=== PATIENT | female | born 1985 | race Caucasian/White ===

== ENCOUNTER → 2016-04-10 | Outpatient (CLI) | payer OTHER ==
[~2016-04-10] VITALS: Ht 170.2 cm; Wt 87.1 kg
[~2016-04-10] MED LIST: AMPICILLIN TRI500 MG PO; METHADONE H5 MG/5 ML PO; MOTRIN800 MG PO; PRENATAL TABLE1 EAC3 PO; VALTREX50 MG/ML PO
== END | disposition home or self-care (01) ==
LOC: AMB 01-24 12:00
DX: R10.11 Right upper quadrant pain (principal); K29.80 Duodenitis without bleeding; Z87.11 Personal history of peptic ulcer disease; F17.200 Nicotine dependence, unspecified, uncomplicated; R00.2 Palpitations
CPT/HCPCS: 88305; 88342 TC; B4087

== ENCOUNTER 2017-10-14 21:14 | Emergency (ER) | payer SELFPAY ==
[~2017-10-14] VITALS: Ht 170.2 cm; Wt 95.4 kg
[2017-10-15] MEDS ORDERED: PERCOCET 5/31 TABLET PO (00:30)
[2017-10-15 00:39] VITALS: BP 144/89
[2017-10-16] MEDS ORDERED: VALIUM5 MG PO (09:36)
[2017-10-16] MEDS ORDERED: ULTRAM50 MG PO (09:53)
== END 2017-10-15 00:40 | disposition home or self-care (01) ==
LOC: EME 21:14 → RME 21:14
DX: S53.104A Unspecified dislocation of right ulnohumeral joint, initial encounter (principal); S52.121A Displaced fracture of head of right radius, initial encounter for closed fracture; S80.212A Abrasion, left knee, initial encounter; W18.39XA Other fall on same level, initial encounter; Y93.02 Activity, running; Z72.0 Tobacco use; Z79.891 Long term (current) use of opiate analgesic
CPT/HCPCS: 73070; 99281; 99285; J3010

== ENCOUNTER 2017-10-16 08:25 | Emergency (ER) | payer SELFPAY ==
[~2017-10-16] VITALS: Ht 170.2 cm; Wt 96.8 kg
[~2017-10-16 08:25] MED LIST changes: +PERCOCET 5/31 TABLET PO
[2017-10-16] MEDS ORDERED: VALIUM5 MG PO (09:36)
[2017-10-16 09:45] VITALS: BP 120/77
[2017-10-16] MEDS ORDERED: ULTRAM50 MG PO (09:53)
== END 2017-10-16 10:03 | disposition home or self-care (01) ==
LOC: EME 08:25
DX: S52.121A Displaced fracture of head of right radius, initial encounter for closed fracture (principal); W18.30XA Fall on same level, unspecified, initial encounter; Y93.02 Activity, running
CPT/HCPCS: 73080; 73090; 99281; 99283